=== PATIENT | male | born 2000 | race Hispanic/Latino ===

== ENCOUNTER 2023-04-28 16:35 | Emergency (ER) | payer SELFPAY ==
[2023-04-28 17:46] VITALS: BP 133/86
[2023-04-28] MEDS ORDERED: BACTRIM DS1 TAB PO (18:07)
== END 2023-04-28 18:40 | disposition home or self-care (01) | DRG 603 ==
LOC: ED 16:35
PROC: 0H94XZZ Drainage of Neck Skin, External Approach (ICD-10-PCS; principal; 2023-04-28)
DX: L02.11 Cutaneous abscess of neck (principal)

== ENCOUNTER 2023-04-30 09:37 | Emergency (ER) | payer SELFPAY ==
[~2023-04-30 09:37] MED LIST: BACTRIM DS1 TAB PO
[2023-04-30 10:14] VITALS: BP 114/74
[2023-04-30 10:24] VITALS: BP 114/74
== END 2023-04-30 10:25 | disposition home or self-care (01) | DRG 951 ==
LOC: ED 09:37
DX: Z48.01 Encounter for change or removal of surgical wound dressing (principal)